=== PATIENT | female | born 1995 | race Caucasian/White ===

== ENCOUNTER 2017-04-18 09:51 | Emergency (ER) | payer OTHER ==
[~2017-04-18] VITALS: Ht 162.6 cm; Wt 70.3 kg
--- NOTE | 2017-04-18 10:26 | ED GENERAL ADULT ---
History of Present Illness General Chief Complaint: Abdominal Pain/Flank Pain Stated Complaint: ABD PAIN AND VOMITING Source: patient Exam Limitations: no limitations Vital Signs & Intake/Output Vital Signs & Intake/Output Vital Signs Date Time Temp Pulse Resp B/P B/P Pulse O2 O2 Flow FiO2 Mean Ox Delivery Rate 04/18 1231 97.5 82 14 122/63 97 04/18 1038 Room Air 04/18 0954 97.1 78 20 117/83 95 Room Air Allergies Coded Allergies: Sulfa (Sulfonamide Antibiotics) (HIVES 04/18/17) Reconcile Medications Ondansetron (Zofran Odt) 4 MG TAB.RAPDIS 1 TAB SL TID PRN vomiting Triage Note: PT WITH LEFT SIDED BACK PAIN THAT GOES AROUND TO THE FRONT. PT REPORTS SHARP PAIN WITH NAUSEA DENIES DIARRHEA. Triage Nurses Notes Reviewed? yes : No Patient currently breastfeeds: No HPI: 22-year-old otherwise healthy female presenting with left flank pain since 7 AM today. Reports sharp stabbing pain that initially started in her left mid back and has now radiated to her left lower quadrant. Pain is associated with nausea and vomiting. Denies fevers, diarrhea, dysuria, hematuria. Past History Travel History Traveled to [place] past 21 day No Medical History Any Pertinent Medical History? none Surgical History Surgical History: non-contributory Psychosocial History What is your primary language Cypriot Tobacco Use: Never used ETOH Use: occasional use Illicit Drug Use: denies illicit drug use Family History Hx Contributory? No Review of Systems Review of Systems Constitutional: Denies: chills, fever. Respiratory: Reports: no symptoms. Cardiovascular: Reports: no symptoms. GI: Reports: nausea, vomiting. Denies: abdominal pain, diarrhea. Genitourinary: Denies: discharge, dysuria, frequency, urgency. Musculoskeletal: Reports: no symptoms. Neurological/Psychological: Reports: no symptoms. Physical Exam Physical Exam General Appearance: well developed/nourished, moderate distress Head: atraumatic Respiratory: normal breath sounds, lungs clear Cardiovascular: regular rate/rhythm Gastrointestinal: normal bowel sounds, soft, non-tender Back: no CVA tenderness Neurologic/Psych: awake, alert, oriented x 3 Core Measures ACS in differential dx? No CVA/TIA Diagnosis: No Severe Sepsis Present: No Septic Shock Present: No Progress Differential Diagnoses I considered the following diagnoses in my evaluation of the patient: [ Nephrolithiasis versus ureterolithiasis versus pyelonephritis versus muscle strain] Plan of Care: Orders Procedure Date/time Status URINE 04/18 1025 Complete URINALYSIS 04/18 1017 Complete CBC WITHOUT DIFFERENTIAL 04/18 1017 Complete BASIC METABOLIC PANEL 04/18 1017 Complete Laboratory Tests 04/18/17 1120: Urine Test NEGATIVE 04/18/17 1120: Urinalysis MOD H, Urine Color YEL, Urine Clarity CLDY H, Urine pH 8.5 H, Ur Specific [place] 1.015, Urine Protein 30 H, Urine Ketones 15 H, Urine Nitrite NEG, Urine Bilirubin NEG, Urine Urobilinogen 0.2, Ur Leukocyte Esterase SMALL H , Ur Microscopic SEDIMENT EXAMINED, Urine RBC 15-25 H, Urine WBC 1-3 H, Ur Epithelial Cells FEW, Urine Bacteria MOD H, Urine Mucus FEW, Urine Hemoglobin LARGE H, Urine Glucose NEG 04/18/17 1030: Anion Gap 17 H, Estimated GFR > 60, BUN/Creatinine Ratio 20.0, Glucose 112 H, Calcium 9.9, CBC w Diff MAN DIFF ORDERED, RBC 5.15, MCV 84.3, MCH 27.6, RDW 13.6 , MPV 9.5, Gran % 92.9 H, Lymphocytes % 4.1 L, Monocytes % 2.8, Eosinophils % 0.1, Basophils % 0.1, Absolute Granulocytes 19.8 H, Segmented Neutrophils 93 H , Absolute Lymphocytes 0.9 L, Lymphocytes 6 L, Monocytes 1 L, Absolute Monocytes 0.6, Absolute Eosinophils 0, Absolute Basophils 0, Platelet Estimate ADEQUATE, Normocytic RBCs VERIFIED, Normochromic RBCs VERIFIED, PUBS MCHC 32.7 L Patient and family counseled extensively on risks versus benefits of CT scan for use of diagnosis with renal stones. Patient informed that history and exam are very consistent with a renal stone that will likely pass within the next 48 hours. Kidney function is within normal limits and there are no signs of urine infection, therefore concern for obstructing stone is low. There is a large amount of blood in the urine and patient is not currently menstruating, microscopic hematuria further supports the diagnosis of renal stone. Urine test was negative. Patient had complete resolution of pain and nausea after Toradol and Zofran. After extensive counseling patient and family have elected to decline CT scan at this time. Will use ibuprofen at home for pain control as needed. Patient will follow up with her primary care provider in the next 48 hours if pain has not resolved. Given urine filters to attempt to obtain a renal stone once it passes. Will return to the ED sooner for any new or worsening symptoms. Given strict return precautions. ([place],RACHEL) Initial ED EKG: none Departure Departure Disposition: HOME OR SELF CARE Condition: Stable Clinical Impression Primary Impression: Left flank pain Referrals: RENE FLAHERTY,LULA (PCP/Family) Additional Instructions: Use 800 mg of ibuprofen every 8 hours as needed for pain. Use 4 mg of Zofran every 8 hours as needed for nausea and vomiting. Maintain adequate fluid intake. If your pain is not improving after 48 hours follow-up with her primary care provider for reevaluation. Return to the ED for any new or worsening symptoms. Departure Forms: Customer Survey General Discharge Information Prescriptions: Current Visit Scripts Ondansetron (Zofran Odt) 1 TAB SL TID PRN vomiting #10 TAB Critical Care Note Critical Care Note Critical Care Time: non-applicable
[2017-04-18 10:42] LABS: ABSOLUTE BASOPHIL COUNT 0 /CUMM (0.0-0.2); ABSOLUTE EOSINOPHIL COUNT 0 /CUMM (0.0-0.7); ABSOLUTE GRANULOCYTE CT 19.8 /CUMM (1.4-6.5); ABSOLUTE LYMPH COUNT 0.9 /CUMM (1.2-3.4); ABSOLUTE MONOCYTE COUNT 0.6 /CUMM (0.10-0.60); BASOPHIL % 0.1 % (0.0-2.0); EOSINOPHIL % 0.1 % (0-5); HEMATOCRIT 43.4 % (37-47); MEAN CORPUSCULAR HGB 27.6 PG (27.0-31.0); MEAN CORPUSCULAR HGB CONC 32.7 G/DL (33.0-37.0); MEAN CORPUSCULAR VOLUME 84.3 FL (81.0-99.0); MEAN PLATELET VOLUME 9.5 FL (7.4-10.4); PLATELET COUNT 334 /CUMM (130-400); RBC DISTRIBUTION WIDTH 13.6 % (11.5-14.5); RED BLOOD CELL CT 5.15 /CUMM (4.20-5.40); WHITE BLOOD CELL COUNT 21.3 /CUMM (4.8-10.8)
[2017-04-18 10:44] LABS: GRANULOCYTE % 92.9 % (42.2-75.2)
[2017-04-18] MEDS ORDERED: ZOFRAN ODT4 M1 SL (12:17)
[2017-04-18 12:31] VITALS: BP 122/63
== END 2017-04-18 12:32 ==
LOC: ERH 09:51
PROVIDERS: Physician Assistant
DX: R10.9 Unspecified abdominal pain (principal)
CPT/HCPCS: 81001; 81025; 96374; 96375; J1885; J2405

== ENCOUNTER 2017-04-21 06:48 | Emergency (ER) | payer OTHER ==
[~2017-04-21] VITALS: Ht 162.6 cm; Wt 70.3 kg
[~2017-04-21 06:48] MED LIST: ZOFRAN ODT4 M1 SL
--- NOTE | 2017-04-21 07:29 | ED GENERAL ADULT ---
History of Present Illness General Chief Complaint: General Adult Stated Complaint: MULTIPLE COMPLAINTS Source: patient, family Exam Limitations: no limitations Vital Signs & Intake/Output Vital Signs & Intake/Output Vital Signs Date Time Temp Pulse Resp B/P B/P Pulse O2 O2 Flow FiO2 Mean Ox Delivery Rate 04/21 0932 97.2 65 20 101/59 97 Room Air 04/21 0706 97.8 89 18 128/86 97 Room Air Allergies Coded Allergies: Sulfa (Sulfonamide Antibiotics) (HIVES 04/18/17) Reconcile Medications Cephalexin (Keflex) 500 MG CAPSULE 1 CAP PO BID UTI Ondansetron (Zofran Odt) 4 MG TAB.RAPDIS 1 TAB SL TID PRN vomiting Triage Note: 22 Y/O MALE FEMALE C/O L FLANK PAIN RADIATING INTO LLQ SINCE TUESDAY. WAS EVAL'D TUESDAY AND DIAGNOSED WITH PROBABLY KIDNEY STONE (NO CT DONE). F/U WITH PMD YESTERDAY AND HAD REPEAT URINALYSIS AND ULTRASOUND. STATES URINE CONTINUES TO SHOW RED BLOOD CELLS. STATES PAIN IS UNRELIEVED WITH MOTRIN 800MG AND PERCOCET (LAST DOSE MIDNIGHT). ALSO C/O DIFFICULTY URINATING. Triage Nurses Notes Reviewed? yes Onset: Abrupt Duration: day(s): Timing: recent history : No Patient currently breastfeeds: No HPI: 04/21/17 7:50 AM 22-year-old female presents to the emergency department complaining of left- sided flank pain. The patient states she had flank pain intermittently over the past week. She has seen her primary care doctor and was evaluated in the emergency department she had an ultrasound which apparently showed hydronephrosis. She's also had hematuria. The onset of the symptoms were abrupt, the duration has been about 7 days, the severity is significant; as her symptoms required her to come to the emergency department for care. She has associated left flank pain and nausea. She denies any significant past medical history. She has a past surgical history for a knee surgery. She has a family history of kidney stones in both uncles. Past History Travel History Traveled to [place] past 21 day No Medical History Any Pertinent Medical History? see below for history Neurological: NONE EENT: NONE Cardiovascular: NONE Respiratory: NONE Gastrointestinal: NONE Hepatic: NONE Renal: NONE Musculoskeletal: NONE Psychiatric: NONE Endocrine: NONE Blood Disorders: NONE Cancer(s): NONE CORRECTION OFFICER REFORMATORY/Reproductive: NONE Surgical History Surgical History: non-contributory Psychosocial History What is your primary language Citizen Of [place] Tobacco Use: Never used Family History Hx Contributory? No Review of Systems Review of Systems Constitutional: Denies: fever. EENTM: Reports: no symptoms. Respiratory: Reports: no symptoms. Cardiovascular: Reports: no symptoms. GI: Reports: abdominal pain. Genitourinary: Reports: see HPI. Musculoskeletal: Reports: back pain. Skin: Denies: rash. Neurological/Psychological: Reports: no symptoms. Hematologic/Endocrine: Reports: no symptoms. Immunologic/Allergic: Reports: no symptoms. Physical Exam Physical Exam General Appearance: well developed/nourished, alert, awake, anxious, mild distress Head: atraumatic, normal appearance Eyes: Bilateral: normal appearance, PERRL, EOMI. Ears, Nose, Throat: normal pharynx, normal ENT inspection Neck: normal inspection, supple Respiratory: normal breath sounds, chest non-tender, no respiratory distress Cardiovascular: regular rate/rhythm Peripheral Pulses: 4+ radial (R), 4+ radial (L) Gastrointestinal: soft, non-tender Back: CVA tenderness (L) Extremities: normal inspection, normal range of motion, no edema Neurologic/Psych: no motor/sensory deficits, awake, alert, oriented x 3 Skin: intact, normal color, warm/dry Core Measures ACS in differential dx? No CVA/TIA Diagnosis: No Severe Sepsis Present: No Septic Shock Present: No Progress Differential Diagnoses I considered the following diagnoses in my evaluation of the patient: [ Ureterolithiasis, pyelonephritis, sciatica, ovarian cyst] Plan of Care: Orders Procedure Date/time Status CULTURE,URINE 04/21 747 Active URINE 04/21 747 Complete URINALYSIS 04/21 747 Complete COMPREHENSIVE METABOLIC PANEL 04/21 747 Complete CBC WITHOUT DIFFERENTIAL 04/21 747 Complete Laboratory Tests 04/21/17 0800: Anion Gap 12, Estimated GFR > 60, BUN/Creatinine Ratio 13.8, Glucose 93, Calcium 9.5, Total Bilirubin 0.5, AST 17, ALT 28, Alkaline Phosphatase 60, Total Protein 7.2, Albumin 4.2, Globulin 3.0, Albumin/Globulin Ratio 1.4, CBC w Diff NO MAN DIFF REQ, RBC 4.46, MCV 83.3, MCH 28.0, RDW 12.9, MPV 10.4, Gran % 82.1 H, Lymphocytes % 8.6 L, Monocytes % 8.9, Eosinophils % 0.3, Basophils % 0.1, Absolute Granulocytes 12.6 H, Absolute Lymphocytes 1.3, Absolute Monocytes 1.4 H, Absolute Eosinophils 0, Absolute Basophils 0, PUBS MCHC 33.6, Urinalysis LIGHT H, Urine Color YEL, Urine Clarity HAZY H, Urine pH 6.0, Ur Specific [place] 1.020, Urine Protein NEG, Urine Ketones NEG, Urine Nitrite NEG, Urine Bilirubin NEG, Urine Urobilinogen 0.2, Ur Leukocyte Esterase NEG, Ur Microscopic SEDIMENT EXAMINED, Urine RBC 15-25 H, Urine WBC 10-15 H, Ur Epithelial Cells MOD H, Urine Bacteria MANY H, Urine Mucus MOD H, Urine Hemoglobin MOD H, Urine Glucose NEG, Urine Test NEGATIVE Microbiology 04/21 0800 URINE ROUT: Urine Culture - RECD Initial ED EKG: none Departure Departure Disposition: STILL A PATIENT Condition: Stable Clinical Impression Primary Impression: Renal colic on left side Referrals: LULA LÓPEZ MD (PCP/Family) Departure Forms: Customer Survey General Discharge Information Prescriptions: Current Visit Scripts Cephalexin (Keflex) 1 CAP PO BID #20 CAP Comments ORDERING PHYSICIAN: CURTIS ELIZONDO DO SERVICE DATE: 04/21/17 EXAM TYPE: CAT - CT ABD & PELVIS W/O IV CONTRAS EXAMINATION: CT ABDOMEN AND PELVIS WITHOUT CONTRAST CLINICAL INFORMATION: Left flank pain. COMPARISON: None TECHNIQUE: Multidetector volumetric imaging was performed from the superior aspect of the liver through the pubic symphysis. Sagittal and coronal reformatted images were obtained on the technologist's workstation. DLP: 300 mGy-cm FINDINGS: LUNG BASES: The visualized lung bases are unremarkable. LIVER, GALLBLADDER, AND BILIARY TREE: The liver is normal in size, shape, and attenuation. No focal hepatic lesion or biliary ductal dilatation is present. The gallbladder is unremarkable with no evidence of radiopaque gallstones, gallbladder wall thickening, or obvious pericholecystic inflammatory changes. PANCREAS: Unremarkable. SPLEEN: Unremarkable. ADRENAL GLANDS: Unremarkable. KIDNEYS AND URETERS: The kidneys are normal in size, shape, and attenuation. There is a 2 mm nonobstructive radiopaque calculi lower pole calyx left kidney. The ureters are difficult to visualize. However there is no hydronephrosis seen. BLADDER: A 3 mm radiopaque calculi is seen in the dependent portion of the bladder from recent passage of stone. GASTROINTESTINAL TRACT: Minimal scattered stool is seen in the right colon without distention. Rest of colon and the small bowel loops normal. Appendix is not seen with certainty. No inflammatory process seen. ABDOMINAL WALL: No significant hernia is appreciated. LYMPH NODES: Normal. VASCULAR: Unremarkable. PELVIC VISCERA: The uterus is anteverted and appear unremarkable. There is no free air or free fluid. There is solitary phlebolith in the left pelvis OSSEOUS STRUCTURES: No lytic or sclerotic process seen. IMPRESSION: 2 mm nonobstructive radiopaque calculi lower pole calyx left kidney. No additional stones seen. 8 3 mm radiopaque calculi seen in the dependent portion of bladder from recent passage. The ureters are not optimally visualized however there is no hydronephrosis seen on either side. DICTATED BY: FABIOLA MCKINLEY MD DATE/TIME DICTATED:04/21/17932 CAD DESIGN ENGINEER:LUAN DATE/TIME TRANSCRIBED:04/21/17932 CONFIDENTIAL, DO NOT COPY WITHOUT APPROPRIATE AUTHORIZATION. <Electronically signed in Other Vendor System> SIGNED BY: ARLEN FLAHERTY,FABIOLA 04/21/17 0945 Critical Care Note Critical Care Note Critical Care Time: non-applicable
[2017-04-21 08:17] LABS: ABSOLUTE EOSINOPHIL COUNT 0 /CUMM (0.0-0.7); ABSOLUTE LYMPH COUNT 1.3 /CUMM (1.2-3.4); WHITE BLOOD CELL COUNT 15.4 /CUMM (4.8-10.8)
[2017-04-21 08:46] LABS: ABSOLUTE BASOPHIL COUNT 0 /CUMM (0.0-0.2); ABSOLUTE GRANULOCYTE CT 12.6 /CUMM (1.4-6.5); ABSOLUTE MONOCYTE COUNT 1.4 /CUMM (0.10-0.60); BASOPHIL % 0.1 % (0.0-2.0); EOSINOPHIL % 0.3 % (0-5); GRANULOCYTE % 82.1 % (42.2-75.2); MEAN CORPUSCULAR HGB CONC 33.6 G/DL (33.0-37.0); MEAN CORPUSCULAR VOLUME 83.3 FL (81.0-99.0); MEAN PLATELET VOLUME 10.4 FL (7.4-10.4); PLATELET COUNT 290 /CUMM (130-400); RBC DISTRIBUTION WIDTH 12.9 % (11.5-14.5); RED BLOOD CELL CT 4.46 /CUMM (4.20-5.40)
[2017-04-21 08:47] LABS: HEMATOCRIT 37.1 % (37-47)
[2017-04-21 09:32] VITALS: BP 101/59
--- NOTE | 2017-04-21 09:45 | CT SCAN REPORT ---
EXAMINATION: CT ABDOMEN AND PELVIS WITHOUT CONTRAST CLINICAL INFORMATION: Left flank pain. COMPARISON: None TECHNIQUE: Multidetector volumetric imaging was performed from the superior aspect of the liver through the pubic symphysis. Sagittal and coronal reformatted images were obtained on the technologist's workstation. DLP: 300 mGy-cm FINDINGS: LUNG BASES: The visualized lung bases are unremarkable. LIVER, GALLBLADDER, AND BILIARY TREE: The liver is normal in size, shape, and attenuation. No focal hepatic lesion or biliary ductal dilatation is present. The gallbladder is unremarkable with no evidence of radiopaque gallstones, gallbladder wall thickening, or obvious pericholecystic inflammatory changes. PANCREAS: Unremarkable. SPLEEN: Unremarkable. ADRENAL GLANDS: Unremarkable. KIDNEYS AND URETERS: The kidneys are normal in size, shape, and attenuation. There is a 2 mm nonobstructive radiopaque calculi lower pole calyx left kidney. The ureters are difficult to visualize. However there is no hydronephrosis seen. BLADDER: A 3 mm radiopaque calculi is seen in the dependent portion of the bladder from recent passage of stone. GASTROINTESTINAL TRACT: Minimal scattered stool is seen in the right colon without distention. Rest of colon and the small bowel loops normal. Appendix is not seen with certainty. No inflammatory process seen. ABDOMINAL WALL: No significant hernia is appreciated. LYMPH NODES: Normal. VASCULAR: Unremarkable. PELVIC VISCERA: The uterus is anteverted and appear unremarkable. There is no free air or free fluid. There is solitary phlebolith in the left pelvis OSSEOUS STRUCTURES: No lytic or sclerotic process seen. IMPRESSION: 2 mm nonobstructive radiopaque calculi lower pole calyx left kidney. No additional stones seen. 8 3 mm radiopaque calculi seen in the dependent portion of bladder from recent passage. The ureters are not optimally visualized however there is no hydronephrosis seen on either side.
[2017-04-21] MEDS ORDERED: KEFLEX500 M1 PO (10:08)
== END 2017-04-21 10:15 ==
LOC: ERH 06:48
PROVIDERS: Emergency Medicine
DX: N23 Unspecified renal colic (principal)
CPT/HCPCS: 74176; 81001; 81025; 87086; 96361; 96374; 96375; J0696; J1885; J2405